=== PATIENT | male | born 1930 | race Caucasian/White ===

== ENCOUNTER → 2017-06-21 | Day surgery (SDC) | payer MEDICARE ==
[2017-06-20 11:37] LABS: BASOPHILS # (AUTO) 0.1 (0.0-0.1); BASOPHILS % 0.9 % (0.0-1.0); EOSINOPHILS # (AUTO) 0.3 (0.0-0.4); EOSINOPHILS % 4.8 % (0.0-6.0); HEMATOCRIT 33.7 % (38.2-49.6); HEMOGLOBIN 11.2 g/dL (14.0-18.0); LYMPHOCYTES % 29.1 % (18.0-39.1); MEAN CORPUSCULAR HEMOGLOBIN 31.3 pg (28-32); MEAN CORPUSCULAR HGB CONC 33.2 g/dL (31-35); MEAN CORPUSCULAR VOLUME 94.1 fL (81-99); MONOCYTES # (AUTO) 0.9 (0.2-0.8); MONOCYTES % 12.8 % (4.4-11.3); NEUTROPHILS # (AUTO) 3.5 (2.1-6.9); NEUTROPHILS % 52.1 % (38.7-80.0); PLATELET COUNT 183 x10e3/uL (140-360); RED BLOOD COUNT 3.58 x10e6/uL (4.3-5.7); RED CELL DISTRIBUTION WIDTH 13.3 % (11.7-14.4)
[2017-06-20 12:06] LABS: ALBUMIN 3.6 g/dL (3.5-5.0); ALBUMIN/GLOBULIN RATIO 0.9 (0.8-2.0); ALKALINE PHOSPHATASE 52 IU/L (40-150); ANION GAP 11.8 mmol/L (8-16); BLOOD UREA NITROGEN 38 mg/dL (7-26); BUN/CREATININE RATIO 19 (6-25); CALCIUM 9.9 mg/dL (8.4-10.2); CARBON DIOXIDE 28 mmol/L (22-29); CHLORIDE 102 mmol/L (98-107); CHOL/HDL RATIO 2.4 (3.9-4.7); CHOLESTEROL 110 MD/DL (0-199); CREATININE, SERUM 2.02 mg/dL (0.72-1.25); EST GLOMERULAR FILTRATION RATE 31 ML/MIN (60-); GLUCOSE 86 mg/dL (74-118); HDL CHOLESTEROL 45 MG/DL (40-60); LDL CHOLESTEROL 45 MG/DL (60-130); POTASSIUM 4.8 mmol/L (3.5-5.1); SODIUM 137 mmol/L (136-145); TRIGLYCERIDES 99 MG/DL (0-149)
[2017-06-20 12:09] LABS: ALANINE AMINOTRANSFERASE < 6 IU/L (0-55)
[2017-06-21] VITALS (9 sets, daily range): BP systolic 134–155; BP diastolic 63–83
[~2017-06-21] VITALS: Ht 185.4 cm; Wt 111.1 kg
[~2017-06-21] MED LIST: ALPRAZOLAM 0.5 MG TAB ONE; ASPIRIN81 MG PO; ATORVASTATIN CA20 MG PO; CARVEDILOL12.5 MG PO; CENTRUM ULTRA1 EAC1 PO; CLOPIDOGREL75 MG PO; DIPHENHYDRAMINE HCL 25 MG CAP ONE; FENTANYL CITRATE/PF 100MCG/2 ML INJ ONE; FUROSEMIDE40 MG PO; HEPARIN SOD (PORCINE) 1000 UNIT/ML 30ML ONE; HEPARIN SOD/SOD CHLORIDE 2,000 ML ONE; IOPAMIDOL 300MG/ML 100 ML INFUS..BTL IV ONE; LIDOCAINE HCL 2% LOCAL 20 ML VIAL ONE; LOSARTAN POTAS100 MG PO; MIDAZOLAM HCL 2 MG/2 ML VIAL ONE; NITROGLYCERIN/D5W 200 MCG/ML 250 ML ONE; PROTAMINE SULFATE 10 MG/ML 5 ML VIAL ONE; SINEMET 25-1001 EACH PO; SODIUM CHLORIDE 0.9% 100 ML 100 ML ONE; SODIUM CHLORIDE 0.9% 1000ML 1,000 ML ONE; TAMSULOSIN HCL0.4 MG PO; ULTRAM50 MG PO; VERAPAMIL HCL 2.5 MG/ML 2 ML VIAL ONE
--- OUTSIDE RECORDS SUMMARY | 2017-06-21 11:20 | XMS REPORT | Clinical Summary ---
Author [facility] Address Unknown Phone Unavailable Care Team Providers Care Retail Associate Manager Bilingual Name Role Phone PCP Unavailable Allergies Active Allergy Reactions Severity Noted Date Comments Penicillins Hives, Swelling 05/27/2015 Current Medications Prescription Sig. Disp. Refills Start End Date Status Date carbidopa-levodopa Take 1 tablet by mouth 2 Active (SINEMET) 25-100 mg per (two) times daily . tablet losartan (COZAAR) 100 MG Take 100 mg by mouth Active tablet daily 1/2 tablet . furosemide (LASIX) 40 MG Take 40 mg by mouth every Active tablet other day Takes one table every other day. aspirin 81 MG EC tablet Take 81 mg by mouth Active daily. MULTIVITS,CA,MIN/IRON/FA/ Take 1 tablet by mouth Active LYCOP (CENTRUM MEN ORAL) daily . atorvastatin (LIPITOR) 20 Take 10 mg by mouth Active MG tablet daily. tamsulosin (FLOMAX) 0.4 Take 0.4 mg by mouth Active mg Cp24 24 hr capsule daily States he takes as needed. clopidogrel (PLAVIX) 75 Take 75 mg by mouth Active mg tablet daily. traMADol (ULTRAM) 50 mg Take 50 mg by mouth 2 Active tablet (two) times daily as needed for Pain. carvedilol (COREG) 12.5 Take 12.5 mg by mouth 2 Active MG tablet (two) times daily with breakfast and dinner Take 1/2 tablet BID . metoprolol (TOPROL-XL) Take 100 mg by mouth 08/26/19 Discontin 100 MG 24 hr tablet daily Take 1/2 tablet . 17 ued omeprazole (PRILOSEC) 20 Take 40 mg by mouth 08/26/19 Discontin MG capsule daily. 17 ued prasugrel (EFFIENT) 10 mg Take 1 tablet (10 mg 30 tablet 11 05/28/19 08/26/19 Discontin Tab tablet total) by mouth daily. 16 17 ued labetalol 20 mg/4 mL (5 Inject 4 mLs (20 mg 0 08/26/19 08/26/19 Discontin mg/mL) Syrg total) intravenously once 17 17 ued for 1 dose. Active Problems Problem Noted Date Pacemaker battery depletion 08/25/2016 CAD (coronary artery disease), [place] coronary artery 05/27/2015 Encounters Date Type Specialty Care Team Description 08/25/2016 Hospital Doyle Ivy MD S/P placement of cardiac Encounter pacemaker (Primary Dx) 08/25/2016 Procedure Pass 08/25/2016 Surgery Doyle Ivy MD PACEMAKER GENERATOR - REMOVE & REPLACE (DUAL) 08/24/2016 Orders Only Cardiology Doyle Ivy MD after 06/20/2016 Social History Tobacco Use Types Packs/Day Years Used Date Former Smoker Comments: 12/28/1974 Quit Alcohol Use Drinks/Week oz/Week Comments No Sex Assigned at Date Recorded Not on file Last Filed Vital Signs Vital Sign Reading Time Taken Blood Pressure 113/56 08/25/2016 11:22 AM CDT Pulse 71 08/25/2016 11:22 AM CDT Temperature 37.1 C (98.8 F) 08/25/2016 5:38 AM CDT Respiratory Rate 18 08/25/2016 11:22 AM CDT Oxygen Saturation 96% 08/25/2016 9:33 AM CDT Inhaled Oxygen - - Concentration Weight 108.4 kg (239 lb) 08/25/2016 5:38 AM CDT Height 182.9 cm (6') 08/25/2016 5:38 AM CDT Body Mass Index 32.41 08/25/2016 5:38 AM CDT Plan of Treatment Not on file Implants Implanted Type Area Spool Cleaner Hand Device Expiration Model / Identifier Date Serial / Lot Tyrx Absorbable Antibacterial Cardiovasc N/A: Chest MEDTRONIC 2016 [id number] / Envelope ular / Implanted: Qty: 1 on 08/25/2016 by [id number] Doyle Ivy MD Pacemaker Ipg Advisa [id number] - Pacemakers N/A: Chest MEDTRONIC:CARD [id number] / [id number] RHY:DISEASE MGT [id number] Implanted: Qty: 1 on 08/25/2016 by / Doyle Ivy MD Wlider Zavala [place] 06/03/2016 [id number] Implanted: Qty: 1 on 05/27/2015 SCIENTIFIC 6350 / / [id number] Procedures Procedure Name Priority Date/Time Associated Diagnosis Comments PACEMAKER GENERATOR - 08/25/2016 Z45.010 REMOVE & REPLACE (DUAL) 7:30 AM CDT Case Notes (1) POP6 after 06/20/2016 Results * ARRYTHMIA IMPLANT REPORT - SCAN (09/30/2016 1:51 PM) Only the most recent of 2 results within the time period is included. * CARDIAC CATH REPORT - SCAN (08/26/2016 12:50 PM) after 06/20/2016
--- NOTE | 2017-08-16 12:22 | Operative Report ---
DATE OF PROCEDURE: June 21, 2017 INDICATIONS: Peripheral arterial disease. PROCEDURES PERFORMED: 1. Abdominal aortogram with bilateral lower extremity angiograms. 2. Selective placement of the catheter from the right femoral artery to the left superficial femoral artery. 3. Additional 3rd-order catheter placement from the right femoral artery to the left posterior tibial artery. 4. Atherectomy and drug-coated balloon angioplasty to the left femoral artery. 5. Secondary thrombectomy of the left femoral artery. 6. Deployment of right groin Perclose. COMPLICATIONS: None. RECOMMENDATIONS: Staged intervention on the right superficial femoral artery. Access was obtained in the right femoral artery. A 6-[place] Islander sheath was placed. Abdominal aortogram demonstrated widely patent abdominal aorta and iliacs bilaterally. Proximal left femoral artery was not well visualized. The right femoral artery had an 80% stenosis proximally. The catheter was then advanced from the right femoral artery to the left superficial femoral artery, confirming left mid superficial femoral artery 90% stenosis. Infrapopliteal vessels were not well visualized. The catheter was then advanced from the right femoral artery to the left posterior tibial artery, confirming 2-vessel runoff with the peroneal and posterior tibial artery. The left anterior tibial artery was completely occluded. A decision was made to intervene on the left femoral artery. The patient received intra-arterial heparin and Effient orally for anticoagulation. The sheath was exchanged to a 6-[place] Islander 45-cm sheath. Orbital atherectomy with a 2-mm [place] was performed. Large amounts of visible thrombus were noted for which manual aspiration thrombectomy was performed. Balloon angioplasty using a 6-mm balloon with excellent end result less than 10% residual stenosis. Right groin repaired using Perclose. Patient discharged home same day. Job#: [id number] EV
== END | disposition home or self-care (01) ==
LOC: CATH LAB 11:18
PROVIDERS: ATTEND Internal Medicine Interventional Cardiology
DX: I70.203 Unspecified atherosclerosis of native arteries of extremities, bilateral legs (principal); Q82.0 Hereditary lymphedema; I87.2 Venous insufficiency (chronic) (peripheral); G20 Parkinson's disease; Z01.812 Encounter for preprocedural laboratory examination; Z79.82 Long term (current) use of aspirin; Z79.02 Long term (current) use of antithrombotics/antiplatelets
CPT/HCPCS: 36415; 37225; 75625; 80053; 80061; 85025; C1724; C1725 ×2; C1769 ×2; C1887; C2623; J1644; J2001; J2250; J2720; J7030; Q9967; 36140; 75716; 77002; 92924

== ENCOUNTER → 2017-08-23 | Day surgery (SDC) | payer MEDICARE ==
[2017-08-22 12:39] LABS: BASOPHILS # (AUTO) 0.1 (0.0-0.1); BASOPHILS % 0.7 % (0.0-1.0); EOSINOPHILS # (AUTO) 0.3 (0.0-0.4); EOSINOPHILS % 4.5 % (0.0-6.0); HEMATOCRIT 32.6 % (38.2-49.6); HEMOGLOBIN 10.8 g/dL (14.0-18.0); LYMPHOCYTES # (AUTO) 1.8 (1.0-3.2); LYMPHOCYTES % 25.3 % (18.0-39.1); MEAN CORPUSCULAR HGB CONC 33.1 g/dL (31-35); MEAN CORPUSCULAR VOLUME 96.4 fL (81-99); MONOCYTES # (AUTO) 0.9 (0.2-0.8); MONOCYTES % 12.5 % (4.4-11.3); NEUTROPHILS # (AUTO) 4.1 (2.1-6.9); NEUTROPHILS % 56.7 % (38.7-80.0); PLATELET COUNT 178 x10e3/uL (140-360); RED BLOOD COUNT 3.38 x10e6/uL (4.3-5.7); RED CELL DISTRIBUTION WIDTH 13.2 % (11.7-14.4)
[2017-08-22 12:57] LABS: ALBUMIN 3.8 g/dL (3.5-5.0); ANION GAP 12.9 mmol/L (8-16); CALCIUM 9.6 mg/dL (8.4-10.2); CREATININE, SERUM 2.06 mg/dL (0.72-1.25); POTASSIUM 4.9 mmol/L (3.5-5.1)
[2017-08-23] VITALS (13 sets, daily range): BP systolic 94–148; BP diastolic 50–72
[~2017-08-23] VITALS: Ht 182.9 cm; Wt 108.9 kg
[~2017-08-23] MED LIST changes: -ALPRAZOLAM 0.5 MG TAB ONE; -DIPHENHYDRAMINE HCL 25 MG CAP ONE; -SODIUM CHLORIDE 0.9% 100 ML 100 ML ONE; -SODIUM CHLORIDE 0.9% 1000ML 1,000 ML ONE; +SODIUM CHLORIDE 0.9% 1000ML 2,000 ML ONE; +SODIUM CHLORIDE 0.9% 50ML 50 ML ONE
--- OUTSIDE RECORDS SUMMARY | 2017-08-23 11:46 | XMS REPORT | Clinical Summary ---
Author Author [facility]AN [facility] Address Unknown Phone Unavailable Care Team Providers Care Lokie Engineer Name Role Phone PCP Unavailable Allergies Active [...] battery depletion 08/25/2016 CAD (coronary artery disease), [place] coronary artery 05/27/2015 Encounters Date Type Specialty Care Team Description 08/25/2016 Hospital Doyle Ivy MD S/P placement of cardiac Encounter pacemaker (Primary Dx) 08/25/2016 Procedure Pass 08/25/2016 Surgery Doyle Ivy MD PACEMAKER GENERATOR - REMOVE & REPLACE (DUAL) 08/24/2016 Orders Only Cardiology Doyle Ivy MD after 08/22/2016 Social History Tobacco Use Types Packs/Day Years [...] Not on file Implants Implanted Type Area Executive Chairman Of The Board Device Expiration Model / Identifier Date Serial / Lot Tyrx Absorbable Antibacterial Cardiovasc N/A: Chest MEDTRONIC 2016 [id number] / Envelope ular / Implanted: Qty: 1 on 08/25/2016 by [id number] Doyle Ivy MD Pacemaker Ipg Advisa [id number] - Pacemakers N/A: Chest MEDTRONIC:CARD [id number] / [id number] RHY:DISEASE MGT [id number] Implanted: Qty: 1 on 08/25/2016 by / Doyle Ivy MD Wilder Zavala [place] 06/03/2016 [id number] Implanted: Qty: 1 on 05/27/2015 [employer] 6350 / / [id number] Procedures Procedure Name Priority Date/Time Associated Diagnosis Comments PACEMAKER GENERATOR - 08/25/2016 Z45.010 REMOVE & REPLACE (DUAL) 7:30 AM CDT Case Notes (1) POP6 after 08/22/2016 Results * ARRYTHMIA IMPLANT REPORT - SCAN (09/30/2016 1:51 PM) Only the most recent of 2 results within the time period is included. * CARDIAC CATH REPORT - SCAN (08/26/2016 12:50 PM) after 08/22/2016
--- NOTE | 2017-08-23 17:21 | Operative Report ---
DATE OF PROCEDURE: August 23, 2017 INDICATIONS: Peripheral arterial disease and claudication of the right lower extremity. PROCEDURES PERFORMED 1. Third-order catheter placement from the left femoral artery to the right superficial femoral artery. 2. Additional 3rd-order catheter placement from the right femoral to the left posterior tibial artery. 3. Atherectomy and drug-coated balloon angioplasty of the right superficial femoral artery. 4. Secondary thrombectomy of the right superficial femoral artery. 5. Deployment of left groin Mynx closure device. COMPLICATIONS: None. RECOMMENDATIONS: Dual antiplatelet therapy for at least 6 months. Access was obtained to the left femoral artery. A 6-[place] sheath was placed and advanced to the right femoral artery (3rd-order catheter placement), 90% proximal right superficial femoral artery stenosis. The lesion was crossed using a Glidewire. Heparin was administered 10,000 units for anticoagulation. Orbital atherectomy using a 2-mm [place] was performed. Large amounts of visible thrombus for which manual aspiration and secondary thrombectomy were needed. Balloon angioplasty with a 6-mm drug-coated balloon was performed. Excellent end result, less than 10% residual stenosis and two-vessel runoff to the right foot. The left groin was repaired using Mynx closure device. Patient was discharged home the same day. Job#: [id number]
== END | disposition home or self-care (01) ==
LOC: CATH LAB 11:45
PROVIDERS: ATTEND Internal Medicine Interventional Cardiology
DX: I70.211 Atherosclerosis of native arteries of extremities with intermittent claudication, right leg (principal); Z01.812 Encounter for preprocedural laboratory examination; Z79.82 Long term (current) use of aspirin; Z79.02 Long term (current) use of antithrombotics/antiplatelets
CPT/HCPCS: 36247; 36415; 37186; 37225; 75710; 80053; 85025; C1724; C1725; C1769 ×3; C1887; J1644; J2001; J2250; J2720; J7030; Q9967; 36140; 77002; 92920; 92924